=== PATIENT | male | born 1985 | race Caucasian/White ===

== ENCOUNTER 2022-04-23 14:41 | Outpatient (REF) | payer OTHER, SELFPAY | END 2022-04-23 14:42 | disposition home or self-care (01) | LOC: HO.LNP 14:41 | PROVIDERS: Visit Provider Internal Medicine | DX: K21.9 Gastro-esophageal reflux disease without esophagitis (principal); R19.7 Diarrhea, unspecified; R14.0 Abdominal distension (gaseous) | CPT/HCPCS: 87338 ==

== ENCOUNTER 2023-02-03 15:40 | Outpatient (REF) | payer OTHER, SELFPAY ==
[2023-02-03 15:56] LABS: MANUAL DIFF FLAG NO
[2023-02-03 16:35] LABS: Basophils Absolute Auto 0.1 X10*3/uL (0.0-0.2); Basophils Percent Auto 0.5 % (0-2); Eosinophils Absolute Auto 0.3 X10*3/uL (0.0-0.4); Eosinophils Percent Auto 2.9 % (0-4); Hematocrit 37.5 % (42.0-52.0); Hemoglobin 13.2 g/dl (14.0-18.0); Imm Gran Abs Auto 0.17 X10*3/uL (0.00-0.03); Imm Gran Pct Auto 1.7 % (0.0-0.4); Lymphocytes Absolute Auto 2.3 X10*3/uL (1.2-4.9); Mean Corpuscular HGB Conc 35.2 g/dl (31.0-36.0); Mean Corpuscular Hemoglobin 31.1 pg (27.0-33.0); Mean Corpuscular Volume 88.2 fL (80.0-98.0); Mean Platelet Volume 10.2 fL (9.4-12.4); Monocytes Absolute Auto 0.9 X10*3/uL (0.1-1.2); Monocytes Percent Auto 8.5 % (2-11); Neutrophils Absolute Auto 6.4 x10*3/uL (2.0-8.3); Neutrophils Percent Auto 63.4 % (45-73); Platelet Count 269 X10*3/uL (160-400); Red Blood Count 4.25 X10*6/uL (4.60-5.80)
[2023-02-03 17:00] LABS: Alanine Aminotransferase 65 U/L (0-40); Albumin Level 4.7 g/dL (3.5-5.0); Alkaline Phosphatase 112 U/L (39-117); Anion Gap 14 (12-20); Aspartate Amino Transferase 54 U/L (5-37); Bilirubin Total 0.4 mg/dL (0.0-1.0); Blood Urea Nitrogen 14 mg/dL (9-16); Calcium 9.5 mg/dL (8.4-10.2); Carbon Dioxide 28 mmol/L (22-29); Chloride 98 mmol/L (96-108); Cholesterol 287 mg/dL; Estimated Glomerular Filt Rate > 60; Glucose Random 98 mg/dL (60-115); HDL Cholesterol 50 mg/dL; Potassium 4.1 mmol/L (3.3-5.1); Sodium 136 mmol/L (135-145); Total Protein 8.3 g/dL (6.5-8.0); Triglycerides 588 mg/dL
== END 2023-02-03 15:41 | disposition home or self-care (01) ==
LOC: HO.LAB 15:40
PROVIDERS: PCP Internal Medicine; Visit Provider Internal Medicine
DX: Z00.00 Encounter for general adult medical examination without abnormal findings (principal); I10 Essential (primary) hypertension; K21.9 Gastro-esophageal reflux disease without esophagitis; R74.01 Elevation of levels of liver transaminase levels
CPT/HCPCS: 36415; 80053; 80061; 85025

== ENCOUNTER 2025-07-19 09:58 | Emergency (ER) | payer OTHER, SELFPAY ==
--- NOTE | ~2025-07-19 | XR_ITS ---
EXAMINATION: XR KNEE, LEFT CLINICAL INFORMATION: knee pain COMPARISON: None available. TECHNIQUE: 2 views of the left knee. FINDINGS: No fracture, dislocation, or suspicious bone lesion. There is normal alignment. Joint spaces are preserved. There is no evidence of joint effusion. The soft tissues appear normal. XR/XR knee LT 2V IMPRESSION: Normal left knee. Electronically signed by: Brett Luna MD 07/19/2025 11:10 AM EDT
[2025-07-19 10:24] VITALS: BP 195/113; PULSE 107; RESP 18; TEMP 36.3; O2SAT 97; BMI 26.6
--- NOTE | 2025-07-19 10:36 | ED_ITS ---
HPI - Extremity Problem General Chief complaint: Extremity Problem Stated complaint: L knee Swelling- Hard Time Moving Leg Time Seen by Provider: 07/19/25 10:19 Source: patient Mode of arrival: ambulatory Limitations: no limitations History of Present Illness ED Provider: LA Ayala HPI Narrative: 39-year-old male with medical history of GERD, HTN, presents to the ED due to 3 days of left knee pain. 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 Patient states over the past 2 days knee pain has gotten progressively worse. Patient states he is very active at work and does not know if he may have hit the knee or possibly injured my meniscus while at work. Patient took tylenol on Tuesday which provided mild relief. Patient states pain is mostly over the patella, and medially. Denies history of IVDU, fevers, chills, chest pain, SOB Related Data Home Medications ?Medication ?Instructions ?Recorded ?Confirmed losartan 100 1 tab PO DAILY 01/25/23 05/11/18 mg-hydrochlorothiazide 25 mg tablet metoprolol succinate 100 mg 100 mg PO DAILY 01/25/23 0 01/25/23 tablet,extended release 24 hr omeprazole 20 mg capsule,delayed 20 mg PO DAILY 01/25/23 release Previous Rx's ?Medication ?Instructions ?Recorded hydrochlorothiazide 25 mg tablet 25 mg PO DAILY 90 day s #90 tabs 07/19/25 Allergies Allergy/AdvReac Type Severity Reaction Status Date / Time No Known Allergies Allergy Verified 07/19/25 10:27 Review of Systems Review of Systems: CONST: Negative for fever, body aches and chills. HENT: Negative for neck pain/stiffness, headache, congestion, sore throat, swelling. EYES: Negative for discharge/pain or vision changes. RESP: Negative for cough/hemoptysis and shortness of breath. CV: Negative chest pain, difficulty breathing, palpitations. ABD: Negative pain, nausea, vomiting. : Negative increase frequency, dysuria, blood in urine or stool. MUSC: Negative for muscle aches, edema. POS L knee pain SKIN: Negative rash, lesions/sores. NEURO: Negative headache, dizziness, weakness. Yes all other systems are reviewed and are negative PMFSH Past Medical History Attestation statement: The following information was validated with the patient. Source: old records reviewed and nursing notes reviewed Social History Social History Advance Directives: No Advance Directives Information Provided: Yes Physical Exam Vital Signs: Vital Signs: Last Vital Signs Temp 97.3 F 07/19/25 10:24 Pulse 107 H 07/19/25 10:24 Resp 18 07/19/25 10:24 BP 195/113 H 07/19/25 10:24 Pulse Ox 97 07/19/25 10:24 O2 Del Method Room Air 07/19/25 10:24 BMI result Body Mass Index 26.6 GENERAL APPEARANCE: ?AxOx4, generally well-appearing, no acute distress. HEENT: ?NC, AT. MMM. EOMI, clear conjunctiva, oropharynx clear. NECK: ?Supple without lymphadenopathy.? No stiffness or restricted ROM. HEART:? Normal rate and regular rhythm, normal S1/S2, no m/r/g LUNGS:? CTAB, moving air well. No crackles or wheezes are heard. ABDOMEN: ?Soft, nontender, nondistended with good bowel sounds heard. BACK: No CVAT, no obvious deformity. EXTREMITIES: ?Without cyanosis, clubbing or edema. L knee TTP over patella and medial knee, no calf pain or tenderness, negative valentina's sign, ROM intact but does have pain in flexion, SILT, popliteal pulses 2+, DP pulses 2+ NEUROLOGICAL: ?Grossly nonfocal. Alert and oriented, moving all 4 extremities. Observed to ambulate with normal gait. Skin: ?Warm and dry without any rash. Medications Administered Discontinued Medications Generic Name Dose Route Start Last Admin Trade Name Freq PRN Reason Stop Dose Admin Acetaminophen 975 mg 07/19/25 10:49 07/19/25 11:45 Acetaminophen 325 Mg Tablet PO 07/19/25 10:50 975 mg ONCE ONE Administration Ketorolac Tromethamine 30 mg 07/19/25 10:49 07/19/25 11:45 Ketorolac Tromethamine 30 Mg/Ml Vial IM 07/19/25 10:50 30 mg ONCE ONE Administration Medical Decision Making Medical Decision Making MDM Narrative: 39-year-old male with medical history of GERD, HTN, presents to the ED due to 3 days of left knee pain. 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 Patient states over the past 2 days knee pain has gotten progressively worse. Patient states he is very active at work and does not know if he may have hit the knee or possibly injured my meniscus while at work. Patient took tylenol on Tuesday which provided mild relief. Patient states pain is mostly over the patella, and medially. Denies history of IVDU VS on initial observation-BP 195/113, pulse rate of 107, respiratory rate of 18, afebrile with oral temp of 97.3?, O2 saturation 97% on room air. On physical exam, L extremity with TTP over the patella, and medially to the patella, no edema, warmth or erythema to the area, full ROM intact but does have pain in flexion, patient able to bear weight and ambulate on the L leg however, is ambulating with a slow and steady gait due to pain. Plan: XR L knee, medicate with 30mg IM toradol, 975mg PO Tylenol XR L knee negative for fracture, dislocation, no joint effusion. Patient feels mild relief from pain after being medicated with 30 mg IM Toradol, 975 p.o. Tylenol. However, patient endorsing and achiness behind the knee, without calf tenderness, Valentina's sign negative, no SOB, or difficulty breathing. Patient has tobacco history but no other risk factors for DVT. Using shared decision making with the patient, I discussed further evaluation with ultrasound to evaluate for bakers cyst and DVT, however patient does not want to stay in the department at this time and would like to go home for self care. Patient states he will come back to the department if pain does not go away or gets worse. I will provide referral to orthopedics as patient is requesting further imaging for potential ligamentous injury as he feels he may have injured the deeper structures of the knee while at work. I counseled patient to take 500mg of tylenol and 400mg of ibuprofen every 6 hours, ice, elevate and use julissa bandage for compression to the area to manage pain at home. I counseled patient on strict return precautions including worsening knee pain, pain in the calf, increased pain with ambulation, inability to bear weight onto the L leg, chest pain, or SOB. Patient feels well enough to go home for self care and is in agreement with the plan. Differential Diagnosis Differential Diagnoses: The differential diagnosis associated with the presentation includes Patella fracture Patella dislocation Ligamentous injury Bakers cyst Admission/Observation Consideration of admission/observation: Escalation of care including admission/observation considered Independent Interpretation I performed an independent interpretation of an: Plain X-Ray Interpretation: I personally interpreted the XR L knee which was negative for fracture, dislocation or joint effusion, I agree with the radiologist's interpretation Radiology Impression Discussion of test interpretation with radiology: I have reviewed the radiologist's reading. Radiologist Impression: XR L knee FINDINGS: No fracture, dislocation, or suspicious bone lesion. There is normal alignment. Joint spaces are preserved. There is no evidence of joint effusion. The soft tissues appear normal. XR/XR knee LT 2V IMPRESSION: Normal left knee. Electronically signed by: Brett Luna MD 07/19/2025 11:10 AM EDT RP Dictated By: Brett Luna MD Signed By: <Electronically signed by Brett Luna MD in OV> 07/19/25 1110 External Record Review External record reviewed: Inpatient record, Office record and Outpatient record Chronic Conditions Patient?s care impacted by: Hypertension and Other (GERD) Discharge Plan Discharge Clinical Impression: Knee pain Patient Disposition: Home, Self-Care Additional Instructions: You were evaluated in the ED today due to left knee pain. Your x-ray was negative for fracture, dislocation or for fluid within the joint space. You had some pain behind the knee, this could be due to something called the Shelton's cyst which is a fluid-filled sac within the joint space. However this is a non- emergent finding and usually self resolves with compression, ice and rest. You may need further imaging if you have injured the deeper ligamentous structures of the knee. You were medicated with tylenol and and intramuscular injection of toradol for pain management. You do not need to take tylenol or ibuprofen until 8pm tonight. You had elevated blood pressures while in the department of 195/113. You were given 25mg of hydrochlorothiazide. I have prescribed hydrochlorothiazide for the next 90 days. Please follow up with your primary care doctor for follow up of hypertension. Please take 500mg of tylenol and 400mg of ibuprofen every 6 hours, ice the knee, elevate the leg above heart level, and keep an julissa bandage for compression. I have provided referal to orthopedics. [facility]. Please return to the emergency department if you experience worsening pain of the left knee, pain in the left calf, inability to bear weight on the left leg, chest pain, shortness of breath, fevers over 100.4? or any new/worsening/concerning symptoms. Prescriptions: New hydrochlorothiazide 25 mg tablet 25 mg PO DAILY 90 Days Qty: 90 0RF No Action omeprazole 20 mg capsule,delayed release(DR/EC) 20 mg PO DAILY losartan-hydrochlorothiazide 100-25 mg tablet 1 tab PO DAILY metoprolol succinate 100 mg tablet extended release 24 hr 100 mg PO DAILY Print Language: Tajik
[2025-07-19 13:13] VITALS: BP 195/113
[2025-07-19 14:04] VITALS: BP 197/130; PULSE 97; RESP 18; TEMP 36.3; O2SAT 97
== END 2025-07-19 14:05 | disposition home or self-care (01) ==
PROVIDERS: Emergency Provider Emergency Medicine; PCP Internal Medicine
DX: M25.562 Pain in left knee (principal); R60.0 Localized edema
CPT/HCPCS: 73560; 96372; 99283; 99284; J1885

== ENCOUNTER → 2025-07-19 10:49 | Outpatient (BNV) | payer OTHER, SELFPAY | PROVIDERS: Emergency Provider Emergency Medicine; PCP Internal Medicine; Visit Provider Radiology Diagnostic Radiology | DX: M25.562 Pain in left knee (principal) | CPT/HCPCS: 73560 ==